=== PATIENT | female | born 1980 | race Caucasian/White ===

== ENCOUNTER 2017-05-20 00:03 | Emergency (ER) | payer SELFPAY ==
[2017-05-20] MEDS ORDERED: Penicillin V Potassium 250 MG TAB PO SCH (00:45)
== END 2017-05-20 01:10 | disposition home or self-care (01) ==
LOC: ERS 00:03
DX: K04.7 Periapical abscess without sinus (principal); Z79.899 Other long term (current) drug therapy
CPT/HCPCS: 99282